=== PATIENT | male | born 1985 | race Caucasian/White ===

== ENCOUNTER 2016-07-20 03:00 | Emergency (ER) | payer MEDICAID ==
[~2016-07-20] VITALS: Ht 170.2 cm; Wt 114.5 kg
[~2016-07-20 03:00] MED LIST: LORA1TAB PO; ONDA4TAB8 PO
[2016-07-20 03:15] VITALS: Ht 170.2 cm; Wt 114.5 kg
[2016-07-20] MEDS ORDERED: HYDR-3011 PO (04:19)
[2016-07-20] MEDS ORDERED: ACET500C5 PO (04:19)
--- NOTE | 2016-07-20 04:24 | ERD ---
ER Documentation Chief Complaint Date/Time DATE: 07/20/16 TIME: 04:22 Chief Complaint headache x 3 days. been drinking etoh 4 days straight. last drink 3 days ag HPI 30-year-old male presents here in emergency department for complaints of headache for 3 days, patient has been drinking alcohol, now cannot sleep, feeling very anxious, as had been having nightmares, patient has had this problem before. Patient denies any chest pain or palpitations. Patient denies any dizziness. Patient denies any nausea or vomiting. Patient denies any tremors. Patient denies any seizures. Patient did not take any medications for pain. Patient requested medication for sleeping and his anxiety ROS All systems reviewed and are negative except as per history of present illness. Medications Home Meds Active Scripts Hydroxyzine Hcl* (Hydroxyzine Hcl*) 25 Mg Tablet, 50 MG PO Q8H Y for AGITATION/ ANXIETY, #30 TAB Prov:SIMBA OJEDA SALES [employer]ATIONSHIP MANAGER 07/20/16 Acetaminophen* (Tylophen*) 500 Mg Capsule, 1 CAP PO Q6H Y for PAIN AND OR ELEVATED TEMP, #20 CAP Prov:SIMBA OJEDA SALES RELATIONSHIP MANAGER 07/20/16 Lorazepam* (Lorazepam*) 1 Mg Tablet, 1 MG PO Q8, #10 TAB Prov:JESSICA PEREZ PA-C 09/08/15 Ondansetron Hcl* (Zofran*) 4 Mg Tablet, 4 MG PO Q6H for NAUSEA AND/OR VOMITING, #30 TAB Prov:JESSICA PEREZ PA-C 09/08/15 Allergies Allergies: Coded Allergies: No Known Drug Allergy (Verified Allergy, Unknown, 07/20/16) PMhx/Soc Medical and Surgical Hx: pt denies Medical Hx, pt denies Surgical Hx History of Surgery: No Anesthesia Reaction: No Hx Neurological Disorder: No Hx Respiratory Disorders: No Hx Cardiac Disorders: No Hx Psychiatric Problems: No Hx Miscellaneous Medical Probl: No Hx Alcohol Use: Yes Hx Substance Use: No Hx Tobacco Use: No Smoking Status: Never smoker FmHx Family History: No coronary disease, No diabetes, No other Physical Exam Vitals Vital Signs Date Time Temp Pulse Resp B/P Pulse Ox O2 Delivery O2 Flow Rate FiO2 07/20/16 03:15 98.2 81 20 145/92 99 Physical Exam GENERAL: The patient is well developed and appropriate for usual state of health, in no apparent distress. CHEST: Clear to auscultation bilaterally. There are no rales, wheezes or rhonchi. HEART: Regular rate and rhythm. No murmurs, clicks, rubs or gallops. No S3 or S4. ABDOMEN: Soft, nontender and nondistended. Good bowel sounds. No rebound or guarding. No gross peritonitis. No gross organomegaly or masses. No Lauren sign or McBurney point tenderness. BACK: No midline or flank tenderness. EXTREMITIES: Equal pulses bilaterally. There is no peripheral clubbing, cyanosis or edema. No focal swelling or erythema. Full range of motion. Grossly neurovascularly intact. NEURO: Alert and oriented. Cranial nerves 2-12 intact. Motor strength in all 4 extremities with 5/5 strength. Sensation grossly intact. Normal speech and gait. No tremors noted. SKIN: There is no apparent rash or petechia. The skin is warm and dry. HEMATOLOGIC AND LYMPHATIC: There is no evidence of excessive bruising or lymphedema. No gross cervical, axillary, or inguinal lymphadenopathy. Results 24 hrs Current Medications Medications (Trade) Dose Ordered Sig/Harvey Route PRN Reason Start Time Stop Time Status Last Admin Dose Admin Acetaminophen (Tylenol Tab) 650 mg ONCE ONCE PO 07/20/16 04:30 07/20/16 04:31 Hydroxyzine HCl (Atarax) 50 mg ONCE ONCE PO 07/20/16 04:30 07/20/16 04:31 Hydroxyzine and Tylenol was given here in emergency department to help with pain and some anxiety. Procedures/MDM Medical decision making: Patient symptoms most likely consistent with anxiety reaction, also he has been binge drinking most likely from anxiety. Patient is psychiatric evaluation for further evaluation of symptoms. Patient was given resources were to go, for possible psychiatric evaluation, [facility] was given. No symptoms of suicidal homicidal ideation. No symptoms of dehydration at this time. No symptoms of delirium tremens, alcohol withdrawal at this time. Patient appears well and is hemodynamically stable. Vital signs are stable at this time. Prescription was given for hydroxyzine, Tylenol, is advised to follow-up with primary care doctor in 1-2 days, see interactive media specialist as soon as he can. Patient was advised to return to emergency department for any worsening symptoms Departure Diagnosis: Primary Impression: Anxiety Condition: Stable Patient Instructions: Anxiety Reaction Referrals: [facility] YOU HAVE RECEIVED A MEDICAL SCREENING EXAM AND THE RESULTS INDICATE THAT YOU DO NOT HAVE A CONDITION THAT REQUIRES URGENT TREATMENT IN THE EMERGENCY DEPARTMENT. FURTHER EVALUATION AND TREATMENT OF YOUR CONDITION CAN WAIT UNTIL YOU ARE SEEN IN YOUR DOCTORS OFFICE WITHIN THE NEXT 1-2 DAYS. IT IS YOUR RESPONSIBILITY TO MAKE AN APPOINTMENT FOR FOLOW-UP CARE. IF YOU HAVE A PRIMARY DOCTOR --you should call your primary doctor and schedule an appointment IF YOU DO NOT HAVE A PRIMARY DOCTOR YOU CAN CALL OUR PHYSICIAN REFERRAL HOTLINE AT IF YOU CAN NOT AFFORD TO SEE A PHYSICIAN YOU CAN CHOSE FROM THE FOLLOWING [facility] [address] [facility]. [facility] [place] [address] [facility] [facility] [address] [facility] [facility] [address] [facility] [facility] [address] [facility]. [facility] [address] [facility]. [facility] YOU HAVE RECEIVED A MEDICAL SCREENING EXAM AND THE RESULTS INDICATE THAT YOU DO NOT HAVE A CONDITION THAT REQUIRES URGENT TREATMENT IN THE EMERGENCY DEPARTMENT. FURTHER EVALUATION AND TREATMENT OF YOUR CONDITION CAN WAIT UNTIL YOU ARE SEEN IN YOUR DOCTORS OFFICE WITHIN THE NEXT 1-2 DAYS. IT IS YOUR RESPONSIBILITY TO MAKE AN APPOINTMENT FOR FOLOW-UP CARE. IF YOU HAVE A PRIMARY DOCTOR --you should call your primary doctor and schedule and appointment IF YOU DO NOT HAVE A PRIMARY DOCTOR YOU CAN CALL OUR PHYSICIAN REFERRAL HOTLINE AT . IF YOU CAN NOT AFFORD TO SEE A PHYSICIAN YOU CAN CHOSE FROM THE FOLLOWING [facility] INSTITUTIONS: [facility] [address] [place] [address] [facility] [address] [place] [address] [facility] + [facility] [address] [place] [address] Additional Instructions: [facility] [place] [address] main line station engineer: SIMBA Pettit NP Jul 20, 2016 04:24
[2016-07-20] MEDS ORDERED: ACETAMINOPHEN 325 MG TAB PO ONE (04:30)
[2016-07-20] MEDS ORDERED: hydrOXYzine HCL 25 MG TAB PO ONE (04:30)
== END 2016-07-20 04:52 | disposition home or self-care (01) ==
LOC: FTE 03:00
DX: F41.9 Anxiety disorder, unspecified (principal)
CPT/HCPCS: Z7502; Z7610; 99283